=== PATIENT | male | born 1995 | race African-American/Black ===

== ENCOUNTER 2019-06-22 | Emergency (ER) | payer SELFPAY ==
[~2019-06-22] MED LIST: DENIES CURRENT MEDS; LORTAB 5/3255 MG PO
[2019-06-22 14:12] LABS: IMMATURE GRANULOCYTES 0.2 % (0.0-5.0); MEAN CORPUSCULAR HGB 30.9 pG CALC (26.0-32.0); NEUT# 1.93 thou/uL (1.82-7.42); RED BLOOD COUNT 5.02 mill/uL (4.70-6.10); RED CELL DISTRI WIDTH 12.4 % (11.5-15.5)
[2019-06-22 14:39] LABS: ALBUMIN 5.1 g/dL (3.2-5.0); ALKALINE PHOSPHATASE 96 u/l (38-126); ANION GAP 12 (6-22 (CALC)); BILIRUBIN, TOTAL 0.5 mg/dL (0.0-1.4); BUN 13 mg/dL (9-20); BUN/CREATININE RATIO 13 (12-20 (CALC)); CARBON DIOXIDE 28 mmol/l (22-30); CHLORIDE 105 mmol/l (95-108); GFR > 60 ML/MIN (>=60 (CALC)); GFR FOR AFR.AMER. > 60 ML/MIN (>=60 (CALC)); LIPASE 99 u/l (23-300); POTASSIUM 4.5 mmol/l (3.5-5.1); SGOT/AST 23 u/l (17-59); SODIUM 140 mmol/l (137-146)
[2019-06-22 14:58] LABS: HEMATOCRIT 46.9 % (39.0-50.0); HEMOGLOBIN 15.5 g/dl (14.0-18.0); MEAN CELL VOLUME 93.4 fL CALC (80.0-100.0)
== END 2019-06-22 14:42 | disposition left against medical advice (07) | DRG 392 ==
PROVIDERS: Family Medicine
DX: R10.31 Right lower quadrant pain (principal); R10.32 Left lower quadrant pain; R19.7 Diarrhea, unspecified; F17.290 Nicotine dependence, other tobacco product, uncomplicated; Z91.19 Patient's noncompliance with other medical treatment and regimen

== ENCOUNTER 2020-02-14 02:10 | Emergency (ER) | payer SELFPAY ==
[~2020-02-14] VITALS: Ht 172.7 cm; Wt 73.0 kg
[2020-02-14 03:19] VITALS: BP 141/78
== END 2020-02-14 03:19 | disposition home or self-care (01) | DRG 728 ==
LOC: ED 02:10
DX: A54.09 Other gonococcal infection of lower genitourinary tract (principal); F17.200 Nicotine dependence, unspecified, uncomplicated
CPT/HCPCS: J0561